=== PATIENT | female | born 1975 | race Two or more races ===

== ENCOUNTER → 2023-08-17 | Outpatient (CLI) | payer MEDICAID | END | disposition home or self-care (01) | LOC: RAD 10:08 | PROVIDERS: ATTEND General Practice | DX: M54.9 Dorsalgia, unspecified (principal) | CPT/HCPCS: 72074; 72110 ==

== ENCOUNTER 2024-04-09 05:53 | Outpatient (CLI) | payer MEDICAID | END 2024-04-09 23:59 | disposition home or self-care (01) | LOC: MRI02 05:53 | PROVIDERS: ATTEND Physician Assistant Surgical | DX: S83.411A Sprain of medial collateral ligament of right knee, initial encounter (principal); M17.12 Unilateral primary osteoarthritis, left knee; M25.562 Pain in left knee; M25.561 Pain in right knee; M25.571 Pain in right ankle and joints of right foot; M25.572 Pain in left ankle and joints of left foot; X58.XXXA Exposure to other specified factors, initial encounter; Y93.89 Activity, other specified; Y92.89 Other specified places as the place of occurrence of the external cause; Y99.8 Other external cause status | CPT/HCPCS: 73721 ==

== ENCOUNTER 2024-05-31 12:08 | Emergency (ER) | payer MEDICAID ==
[~2024-05-31] VITALS: Ht 149.9 cm; Wt 70.8 kg
[2024-05-31 12:18] VITALS: TEMP 97.8
[2024-05-31 13:17] LABS: BASOPHILS % (AUTO) 0.4 % (0-1); EOSINOPHILS # (AUTO) 0.1 X10'3 (0-0.9); EOSINOPHILS % (AUTO) 1.1 % (0-6); HEMATOCRIT 40.8 % (35.0-45.0); LYMPHOCYTES % (AUTO) 23.7 % (21-51); MEAN CORPUSCULAR HEMOGLOBIN 31.2 PG (27.0-31.0); MEAN CORPUSCULAR HGB CONC 34.2 g/dL (33.0-36.5); MEAN CORPUSCULAR VOLUME 91.3 FL (78-98); MEAN PLATELET VOLUME 7.6 FL (7.4-10.4); MONOCYTES # (AUTO) 0.8 X10'3 (0-0.9); MONOCYTES % (AUTO) 9.1 % (2-12); NEUTROPHILS # (AUTO) 5.5 X10'3 (1.8-7.7); NEUTROPHILS % (AUTO) 65.7 % (42-75); PLATELET COUNT 279 X10'3 (140-440); RED BLOOD COUNT 4.48 X10'6 (4.20-5.60); RED CELL DISTRIBUTION WIDTH 13.3 % (11.5-14.5); WHITE BLOOD COUNT 8.3 X10'3 (4.5-11.0)
[2024-05-31 13:30] LABS: ALBUMIN 3.2 G/DL (3.4-5.0); ANION GAP 11 (8-16); BLOOD UREA NITROGEN 24 MG/DL (7-18); CALCIUM 8.3 MG/DL (8.5-10.1); CHLORIDE 108 MMOL/L (99-107); GLUCOSE 96 MG/DL (70-104); POTASSIUM 3.6 MMOL/L (3.5-5.1); SODIUM 143 MMOL/L (135-145); TOTAL CARBON DIOXIDE 23.6 MMOL/L (24-32); eCRCL 46 ML/MIN; eGFR 59 ML/MIN
[2024-05-31 13:49] LABS: APTT 28 SECONDS (22-32); PROTHROMBIN TIME 10.1 SECONDS (9.0-12.0)
[2024-05-31] MEDS: ketorolac trometh 15mg/ml vial 15 MG/ML ML IV ONE (14:32)
[2024-05-31] MEDS: acetaminophen 325mg tablet PO ONE (14:32)
[2024-05-31] MEDS: OLANZapine **IM** 10 mg inj. IM ONE (14:33)
[2024-05-31] MEDS: dexamethasone sod phosphate 10mg/ml inj IV STA (15:39)
[2024-05-31 16:25] VITALS: BP 121/77; PULSE 63; RESP 18; O2SAT 95
== END 2024-05-31 16:28 | disposition home or self-care (01) ==
LOC: ER 12:09
DX: G43.909 Migraine, unspecified, not intractable, without status migrainosus (principal); R29.810 Facial weakness; I49.9 Cardiac arrhythmia, unspecified
CPT/HCPCS: 36415; 70450; 71045; 80048; 82948; 84484; 85025; 85610; 85730; 93005; 96372; 96374; 96375; 99285; J1100; J1885; J3490

== ENCOUNTER 2024-11-30 20:26 | Emergency (ER) | payer MEDICAID ==
[~2024-11-30] VITALS: Ht 154.9 cm; Wt 70.9 kg
[2024-11-30 20:32] VITALS: TEMP 97.8
--- NOTE | 2024-11-30 20:41 | ELECTROCARDIOGRAPH REPORT ---
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
[2024-11-30 20:53] LABS: MEAN PLATELET VOLUME 8.1 FL (7.4-10.4); RED CELL DISTRIBUTION WIDTH 13.1 % (11.5-14.5)
--- NOTE | 2024-11-30 20:59 | RADIOLOGY REPORT ---
CHEST RADIOGRAPH Indication: CP Technique: Single frontal view of the chest was obtained COMPARISON: DI CHEST,SINGLE VIEW on DOS: 05/31/24, DI THORACIC SPINE COMPLETE on DOS: 08/17/23 FINDINGS: Lungs and pleural spaces are clear. Cardiac silhouette and marlon are within normal limits. Bones and soft tissues demonstrate no significant abnormality. IMPRESSION: No acute disease.
[2024-11-30 21:11] LABS: CREATININE 0.94 MG/DL (0.40-0.90); PRO BRAIN NATRIURETIC PEPTIDE 32 PG/ML (0-125); TOTAL CARBON DIOXIDE 24.8 MMOL/L (24-32); eCRCL 53 ML/MIN; eGFR 63 ML/MIN
[2024-11-30 23:46] VITALS: BP 142/56; PULSE 75; RESP 15; O2SAT 99
[2024-12-01] MEDS: POTASSIUM CHLORIDE 20 MEQ/15 ML oral solution PO SCH (00:48)
--- NOTE | 2024-12-01 00:49 | Physician Documentation ---
History of Present Illness ~ Chief Complaint: Chest Pain Stated Complaint: CHEST PAIN Time Seen by MD: 23:58 HPI Is a 49-year-old female that presents to the emergency department for complaints of chest pain x2 days. Patient is a adult children accompanying her today to the emergency department. Patient's children reports that the patient has a possible history of anxiety although has not ever been diagnosed with anxiety. Patient has adult child reports that patient has recently experienced a loss and are concerned that that could be affecting her mental state may causing some of her issue today. Patient reports that she took an aspirin before coming to the emergency department. Patient denies any other symptoms at this time. Medication Reconciliation Allergies: Coded Allergies: No Known Allergies (Unverified , 11/30/24) Review of Systems ROS VITALS: Reviewed and as above. GENERAL: Alert, no apparent distress. HEENT: Normocephalic, atraumatic, PERRL, EOMI, dry mucosa, no erythema RESPIRATORY: Lungs clear, normal breath sounds, no respiratory distress. CHEST: No accessory muscle use, no retractions CV: Regular rate, rhythm, no edema, no murmur, No: JVD GI: Soft, non-tender, bowels sounds present, no rebound, guarding, or rigidity BACK: No CVA tenderness, or swelling MUSCULOSKELETAL No deformities, no edema SKIN: Warm and dry, no rash NEURO: Oriented x4, No motor or sensory deficit PSYCH: Normal mood and affect, no agitation As stated above in the HPI, otherwise all systems are reviewed and negative. Physical Exam Vital Signs: Temperature: 97.8, Source: Temporal, Heart Rate: 75, Respiratory Rate: 15, BP: 142/56, Pulse Oximetry: 99, Weight: 70.890 Oxygen Flow Rate: 0 Progress Results/Orders Results/Orders Orders - YUKI RIZZO RN FLOAT Potassium Cl 20meq/15ml Oral (Potassium (12/01/24 00:05) Vital Signs 11/30/24 11/30/24 20:32 23:46 Temp 97.8 Pulse 81 75 Resp 18 15 B/P (MAP) 123/87 142/56 (84) Pulse Ox 98 99 O2 Flow Rate 0 Laboratory Tests Test 11/30/24 20:44 11/30/24 23:02 White Blood Count 5.6 Red Blood Count 4.53 Hemoglobin 13.8 Hematocrit 40.0 Mean Corpuscular Volume 88.2 Mean Corpuscular Hemoglobin 30.5 Mean Corpuscular Hemoglobin Concent 34.5 Red Cell Distribution Width 13.1 Platelet Count 285 Mean Platelet Volume 8.1 Neutrophils (%) (Auto) 49.2 Lymphocytes (%) (Auto) 38.8 Monocytes (%) (Auto) 8.8 Eosinophils (%) (Auto) 2.8 Basophils (%) (Auto) 0.4 Neutrophils # (Auto) 2.7 Lymphocytes # (Auto) 2.2 Monocytes # (Auto) 0.5 Eosinophils # (Auto) 0.2 Basophils # (Auto) 0.0 CBC Comment Sodium Level 143 Potassium Level 3.2 L Chloride Level 109 H Carbon Dioxide Level 24.8 Anion Gap 9 Blood Urea Nitrogen 13 Creatinine 0.94 H Estimated GFR/1.73 m2 63 BUN/Creatinine Ratio 13.8 Glucose Level 198 H Calcium Level 8.7 Troponin I High Sensitivity < 4 L 5 Troponin I High Sens Percent Delta Troponin I Hi Sens Absolute Change Pro-B-Type Natriuretic Peptide 32 Albumin 3.3 L Chemistry Comments Medical Decision Making Findings This patient presents with symptoms chest pain x2 days. Low suspicion for acute cardiopulmonary process including ACS, PE, or thoracic aortic dissection. Twelve lead EKGs negative for any acute findings or abnormalities, troponin was negative repeat troponin is negative all lab work is reassuring at this time chest x-ray is without abnormalities or any concerning findings. The patient denies any ingestions or any other medical complaints. No evidence of alcohol withdrawal symptoms. Given history and physical presentation not consistent with overt toxidrome, ingestion. Presentation not consistent with a medical emergency at this time. No acute indication for psychiatric consultation (without SI/HI, AH/VH). Cautious return precautions discussed with full understanding. Discussed with patient's grown children possible need to have the patient evaluated for anxiety and depression and possibly discuss the need for therapy resources to help her get through this difficult time. Patient will follow up with her primary care provider. He will return to the emergency department if she has any worsening or recurrent symptoms or any additional concerning symptoms that we discussed here today i.e. increased chest pain increased shortness of breath chest pressure lightheadedness dizziness numbness tingling nausea vomiting or any other concerning symptoms. Was discussed with the patient today having a ZIO patch placed at her primary care provider's office if that is something that her primary care provider thinks is appropriate. Differential Dx:Considerations: Include: angina, aortic dissection, chest wall pain, cholelithiasis, CHF, costochondritis, esophageal reflux/spasm, gastritis, herpes zoster, myocardial infarction, pericarditis, pleuritis, pancreatitis, pneumonia, pneumothorax, pulmonary embolus, other Departure Disposition: 01 HOME / SELF CARE / HOMELESS Impression: Primary Impression: Chest pain Additional Impression: Anxiety Condition: Stable Discharge Instructions: Managing Anxiety, Adult, Nonspecific Chest Pain, Adult Referrals: NO PRIMARY CARE PROVIDER (PCP) Education Educated: Patient, Family Educated regarding: diagnosis, treatment, prognosis, need for follow up Signature Scribe Signature: A Attestation: Scribed for Yuki Rizzo by ANNAMARIE Alexandre . 12/01/24 00:51 YUKI RIZZO Dec 01, 2024 00:49
== END 2024-12-01 01:06 | disposition home or self-care (01) ==
LOC: ER 20:27
DX: R07.9 Chest pain, unspecified (principal); F41.9 Anxiety disorder, unspecified; R06.02 Shortness of breath
CPT/HCPCS: 36415; 71045; 80048; 83880; 84484; 85025; 93005; 99285